=== PATIENT | male | born 1980 | race Caucasian/White ===

== ENCOUNTER 2022-05-18 13:28 | Emergency (ER) | payer OTHER ==
[2022-05-18 13:36] VITALS: BP 141/94; PULSE 86; RESP 20; TEMP 97.7
[2022-05-18] MEDS ORDERED: KETOROLAC 15 MG/ML 1 ML VIAL IM STA (15:54)
--- NOTE | 2022-05-18 15:59 | ED ---
Upper Extremity HPI - General Chief Complaint: Extremity Injury, Upper Stated Complaint: arm pain & swelling Time Seen by Provider: 05/18/22 15:50 Source: patient, RN notes reviewed Mode of arrival: ambulatory Limitations: no limitations - History of Present Illness Initial Comments: Patient is a 42-year-old male presents the emergency room with complaints of right elbow swelling tenderness and pain with range of motion limiting his range of motion that began on Monday morning when he woke up. The pain has been ongoing for the last 3 days without any improvement. He reports moving the extremity makes the pain worse. He denies any trauma or injury to his arm. He has not had any previous injuries to his arm either. He denies any other complaints or concerns including any chest pain, shortness breath, abdominal pain, nausea, vomiting, fevers or chills. He has no significant past medical history and does not take any medications on a regular basis. - Related Data Previous Rx's Medication Instructions Recorded Ibuprofen [Motrin] 800 mg PO Q8H PRN 7 Days #21 tab 05/18/22 Allergies Allergy/AdvReac Type Severity Reaction Status Date / Time No Known Allergies Allergy Verified 05/18/22 13:36 Review of Systems ROS Statement: Those systems with pertinent positive or pertinent negative responses have been documented in the HPI. ROS Other: All systems not noted in ROS Statement are negative. Past Medical History Past Medical History: No Reported History Past Surgical History: No Surgical Hx Reported Past Psychological History: No Psychological Hx Reported Smoking Status: Current every day smoker, Heavy tobacco smoker Past Alcohol Use History: Occasional Past Drug Use History: Marijuana General Exam Limitations: no limitations General appearance: alert, in no apparent distress Head exam: Present: atraumatic, normocephalic, normal inspection Eye exam: Present: normal appearance, PERRL, EOMI. Absent: scleral icterus, conjunctival injection, periorbital swelling ENT exam: Present: normal exam, mucous membranes moist Neck exam: Present: normal inspection Respiratory exam: Absent: respiratory distress, accessory muscle use Extremities exam: Absent: pedal edema, joint swelling Right Elbow exam: Present: full ROM (Limited by pain), tenderness, swelling (Medial epicondylar region). Absent: laceration, ecchymosis, deformity, crepitus, dislocation, erythema Vascular: Absent: vascular compromise Back exam: Present: normal inspection Neurological exam: Present: alert, oriented X3, CN II-XII intact Psychiatric exam: Present: normal affect, normal mood Skin exam: Present: warm, dry, intact, normal color. Absent: rash Course Vital Signs 05/18/22 13:33 Temperature 97.7 F Pulse Rate 86 Respiratory 20 Rate Blood Pressure 141/94 O2 Sat by Pulse 98 Oximetry Medical Decision Making - Medical Decision Making Patient is a 42-year-old male presenting to the emergency room with atraumatic pain, mild swelling of the medial epicondylar region with range of motion impairment likely secondary to tendinitis will check x-ray of the right elbow. Will give Toradol IM for pain. No indication for any laboratory studies at this time. Pain improved with IM Toradol. X-ray reveals extensive periarticular calcification no fracture or effusion identified. Will discharge home with ibuprofen to utilize for pain and orthopedic follow-up for possible MRI and surgical intervention for significant calcification. Case discussed [facility] Dr. Lorenzo. - Radiology Data Radiology results: report reviewed, image reviewed X-ray right elbow Limited findings there is soft tissue calcification around the elbow joint consistent with synovial chromndromatosis or tumoral calcinosis. No fracture or dislocation. Note the radial head is intact. No signs of joint effusion impression: Extensive periarticular calcification no fracture seen. Disposition Clinical Impression: Periarticular calcification, Right elbow pain Disposition: HOME SELF-CARE Condition: Stable Instructions (If sedation given, give patient instructions): Arthralgia (ED) Additional Instructions: Please take ibuprofen as prescribed as needed for pain. Do not take with other NSAIDs including aspirin. Please follow-up with orthopedist regarding further evaluation and treatment of significant calcification seen on your right elbow imaging. May utilize sling as needed to help rest joint. Gentle range of motion encouraged. Please return to the Emergency Department if symptoms worsen or any other concerns. Prescriptions: Ibuprofen [Motrin] 800 mg PO Q8H PRN 7 Days #21 tab PRN Reason: Pain Is patient prescribed a controlled substance at d/c from ED?: No Referrals: None,Stated [Primary Care Provider] - 1-2 days Linda Neal DO [Doctor of Osteopathic Medicine] - 1-2 days
--- NOTE | 2022-05-18 16:35 | XR ---
EXAMINATION TYPE: XR elbow limited RT DATE OF EXAM: 05/18/2022 COMPARISON: NONE HISTORY: Elbow pain TECHNIQUE: 3 views FINDINGS: There is soft tissue calcification around the elbow joint consistent with synovial chondrom atosis or tumoral calcinosis. No fracture nor dislocation. The radial head is intact. No sign of join t effusion. IMPRESSION: Extensive periarticular calcification. No fracture seen.
== END 2022-05-18 17:21 | disposition home or self-care (01) ==
LOC: EC 13:28
DX: M25.821 Other specified joint disorders, right elbow (principal); F17.200 Nicotine dependence, unspecified, uncomplicated
CPT/HCPCS: 73070; 99283; 96372; J1885

== ENCOUNTER → 2023-08-08 | Outpatient (CLI) | payer OTHER ==
--- NOTE | 2023-08-08 11:43 | CA ---
Stress Echo Report Terence Duggan Age: 43 Gender: M : 1980 Exam Date: 08/08/2023 10:50 Exam Location: [facility] Stress Ht (in): 65 Wt (lb): 150 Ordering Physician: Jeff Francisco DO ([email or web address]) Referring Physician: JEFF FRANCISCO,, American Sign Language Interpreter: Jorge Moore Technologist Procedure CPT: Indication: I49.3, Z01.818 pre op ICD-9 Codes: Rhythm: Patient History: Cardiac Medications: Medications in past 24 hours: Contrast: N/A Stress Results Protocol: Ronnie Total dose(mL): Exercise Duration (min:sec): 10:[address] Depression (mm): Angina Score: Nunez Score: METS: 11.9 Resting HR: 76 Resting BP: 121 / 75 Peak HR: 147 Peak BP: / 98 Max Predicted HR: 175 84 % Max Predicted HR Target HR: 149 Double Product: Stress Summary: The patient's target heart rate was achieved The hemodynamic response to exercise was normal BP Response: Reason for Termination: MAX EXERTION, DIRECTED PER BOAT GARNISHER Cardiac Symptoms: NO SYMPTOMS ECG Analysis Resting ECG: Normal sinus rhythm, normal ECG Stress ECG: No abnormal ST/T wave changes with exercise Arrhythmia: Frequent PVCs Echo Analysis Resting Echo: Normal resting echocardiogram. Peak Echo Analysis: Normal wall thickening and motion with no segmental wall motion abnormality MEASUREMENTS (Male/Female) Normal Values CONCLUSIONS 1. Good exercise tolerance with normal electrocardiographic response to exercise 2. Frequent single PVCs with rare couplets 3. Normal stress echocardiogram with no evidence of stress induced ischemia Dr. Artis Bhakta MD (Electronically Signed) Final Date: 08 August 2023 11:42
== END | disposition home or self-care (01) ==
LOC: RADNMMAIN 10:38
PROVIDERS: ATTEND Internal Medicine
DX: Z01.818 Encounter for other preprocedural examination (principal); I49.3 Ventricular premature depolarization
CPT/HCPCS: 93351

== ENCOUNTER → 2023-08-11 | Outpatient (CLI) | payer OTHER ==
--- NOTE | 2023-08-11 17:31 | CA ---
Transthoracic Echo Report Name: Terence Duggan Age: 43 Gender: M : 1980 Exam Date: 08/11/2023 15:50 Exam Location: [facility] Echo Ht (in): 68 Wt (lb): 150 Ordering Physician: Jeff Contreras DO ([email or web address]) Attending/Referring Phys: Strategic Communications Manager Tamica Wagner RDCS Procedure CPT: Indications: I49.3, Z01.818 pre op Cardiac Hx: Technical Quality: Good Contrast 1: Total Dose (mL): Contrast 2: Total Dose (mL): MEASUREMENTS (Male / Female) Normal Values 2D ECHO LV Diastolic Diameter PLAX 4.9 cm 4.2 - 5.9 / 3.9 - 5.3 cm LV Systolic Diameter PLAX 3.8 cm IVS Diastolic Thickness 1.2 cm 0.6 - 1.0 / 0.6 - 0.9 cm LVPW Diastolic Thickness 1.2 cm 0.6 - 1.0 / 0.6 - 0.9 cm LV Relative Wall Thickness 0.5 RV Internal Dim ED PLAX 3.4 cm LA Systolic Diameter LX 3.6 cm 3.0 - 4.0 / 2.7 - 3.8 cm LV Diastolic Volume MOD 4C 88.9 cm??? LV Systolic Volume MOD 4C 34.4 cm??? LV Ejection Fraction MOD 4C 61.3 % LV Cardiac Index MOD 4C 2230.3 cm???/min???m??? LV Diastolic Length 4C 9.1 cm LV Systolic Length 4C 7.5 cm LV Diastolic Volume MOD 2C 115.7 cm??? LV Systolic Volume MOD 2C 48.7 cm??? LV Ejection Fraction MOD 2C 57.9 % LV Cardiac Index MOD 2C 2739.1 cm???/min???m??? LV Diastolic Length 2C 9.1 cm LV Systolic Length 2C 7.5 cm LA Volume 56.4 cm??? 18 - 58 / 22 - 52 cm??? LA Volume Index 31.2 cm???/m??? 16 - 28 cm???/m??? M-MODE Aortic Root Diameter MM 3.6 cm MV E Point Septal Separation 0.8 cm AV Cusp Separation MM 2.5 cm DOPPLER AV Peak Velocity 140.9 cm/s AV Peak Gradient 7.9 mmHg MV Area PHT 2.4 cm??? Mitral E Point Velocity 61.0 cm/s Mitral A Point Velocity 60.5 cm/s Mitral E to A Ratio 1.0 MV Deceleration Time 318.6 ms MV E' Velocity 9.7 cm/s Mitral E to MV E' Ratio 6.3 TR Peak Velocity 193.1 cm/s TR Peak Gradient 14.9 mmHg Right Ventricular Systolic Press 19.9 mmHg FINDINGS Left Ventricle Left ventricular ejection fraction is estimated at 60-65 %. Left ventricular cavity size normal.normal left ventricular wall motion. Mildly increased left ventricular wall thickness. Normal left ventricular diastolic filling pattern. Right Ventricle Mild right ventricular dilatation. Right ventricular systolic pressure within normal limits. Right Atrium Normal right atrial size. Left Atrium Mildly increased left atrial volume. Mitral Valve Structurally normal mitral valve. No mitral stenosis, or prolapse.trace to mild mitral regurgitation. Aortic Valve Aortic valve not well visualized. Tricuspid Valve Structurally normal tricuspid valve. Trace to mild tricuspid regurgitation. Pulmonic Valve Structurally normal pulmonic valve. No pulmonic regurgitation. Pericardium No pericardial effusion. Aorta Normal size aortic root and proximal ascending aorta. CONCLUSIONS 1. Normal left ventricle size and systolic function 2. Trace to mild mitral and tricuspid regurgitation Previewed by: Dr. Artis Bhakta MD (Electronically Signed) Final Date: 11 August 2023 17:30
== END | disposition home or self-care (01) ==
LOC: RADECHMAIN 15:36
PROVIDERS: ATTEND Internal Medicine
DX: Z01.810 Encounter for preprocedural cardiovascular examination (principal); I49.3 Ventricular premature depolarization; I08.1 Rheumatic disorders of both mitral and tricuspid valves
CPT/HCPCS: 93306

== ENCOUNTER → 2023-10-06 | Outpatient (CLI) | payer OTHER ==
[2023-10-06 12:16] LABS: INR 0.9 (<1.2); Partial Thromboplastin Time 25.2 sec (22.0-30.0); Prothrombin Time 10.1 sec (10.0-12.5)
[2023-10-06 16:25] LABS: Basophils % (A) 1.1 %; Eosinophils % (A) 3.4 %; HCT 45.3 % (39.6-50.0); HGB 15.2 g/dL (13.0-17.0); Lymphocytes # (A) 2.22 X 10*3/uL (0.90-5.00); MCH 30.8 pg (27.0-32.0); MCHC 33.6 g/dL (32.0-37.0); MCV 91.7 FL (80.0-97.0); Monocytes # (A) 1.15 X 10*3/uL (0.20-1.00); NRBC Per 100 WBC 0 X 10*3/uL (0.00-0.01); Neutrophils # (A) 5.08 X 10*3/uL (1.80-7.70); Neutrophils % (A) 57.2 %; Platelet Count 246 X 10*3/uL (140-440); RBC 4.94 X 10*6/uL (4.40-5.60); RDW 13.9 % (11.5-14.5); WBC 8.88 X 10*3/uL (4.50-10.00)
[2023-10-06 16:45] LABS: Appearance,Urine Clear (Clear); Bilirubin,Urine Negative (Negative); Blood,Urine Negative (Negative); Color,Urine Yellow (Yellow); Ketones,Urine 15 (Negative); Nitrite,Urine Negative (Negative); PH, Urine 5.5; Specific Gravity,Urine 1.018 (1.001-1.030)
[2023-10-06 16:49] LABS: Blood Urea Nitrogen 9.1 mg/dL (9.0-27.0); Calcium 9.4 mg/dL (8.7-10.3); Carbon Dioxide 23.3 mmol/L (21.6-31.8); Chloride 102 mmol/L (96-109); Glucose 99 mg/dL (70-110); Potassium 4.3 mmol/L (3.5-5.5); Sodium 139 mmol/L (135-145)
== END | disposition home or self-care (01) ==
LOC: LABWHC1 11:32
PROVIDERS: ATTEND Orthopaedic Surgery Orthopaedic Surgery of the Spine
DX: Z01.812 Encounter for preprocedural laboratory examination (principal); M48.00 Spinal stenosis, site unspecified; R53.1 Weakness
CPT/HCPCS: 36415; 80048; 81003; 85025; 85610; 85730; 86850; 86900; 86901; 87070

== ENCOUNTER 2023-10-18 10:29 | Inpatient (IN) | payer OTHER ==
[~2023-10-18 10:29] MED LIST: DEXAMETHASONE SOD PHOSPHATE 4 MG/ML 1 ML VIAL IV ONE; HYDROmorphone 0.5 MG/0.5 ML SYRINGE IVP PRN; ONDANSETRON 4 MG/2 ML VIAL IVP ONE; ceFAZolin 1,000 MG in SODIUM CHLORIDE 0.9% IRRIGATIO 1,000 ML IRRIGATION PRN
[2023-10-18] MEDS: LACTATED RINGERS 1,000 ML IV SCH (11:02)
[2023-10-18] MEDS ORDERED: MIDAZOLAM 2 MG/2 ML VIAL IVP ONE (11:38)
[2023-10-18] MEDS ORDERED: DEXAMETHASONE SOD PHOSPHATE 10 MG/ML 1 ML VIAL ONE (12:16)
[2023-10-18] MEDS ORDERED: GLYCOPYRROLATE 0.2 MG/ML 2 ML VIAL ONE (12:16)
[2023-10-18] MEDS ORDERED: fentaNYL (PF) 50 MCG/ML 2 ML AMP ONE (12:16)
[2023-10-18] MEDS ORDERED: PHENYLEPHRINE-0.9% NACL SYG 1,000 MCG/10 ML SYRINGE ONE (12:16)
[2023-10-18] MEDS ORDERED: NEOSTIGMINE 1 MG/ML 10 ML VIAL ONE (12:16)
[2023-10-18] MEDS ORDERED: SUCCINYLCHOLINE CHLORIDE 200 MG/10 ML VIAL IV ONE (12:16)
[2023-10-18] MEDS ORDERED: ROCURONIUM 10 MG/ML (5 ML VIAL) IV ONE (12:16)
[2023-10-18] MEDS ORDERED: MIDAZOLAM 2 MG/2 ML VIAL ONE (12:16)
[2023-10-18] MEDS ORDERED: KETAMINE HCL IN 0.9 % NACL 50 MG/5 ML SYRINGE ONE (12:16)
[2023-10-18] MEDS ORDERED: LIDOCAINE 1% INJ 10MG/ML (20 ML MDV) ONE (12:16)
[2023-10-18] MEDS ORDERED: PROPOFOL 10 MG/ML 20 ML VIAL IV ONE (12:16)
[2023-10-18] MEDS ORDERED: GELATIN SPONGE,ABSORB (LARGE) 1 EACH SPONGE TOPICAL ONE (12:23)
[2023-10-18] MEDS ORDERED: LIDOCAINE 1%-EPI 1:100,000 50 ML VIAL SQ ONE (12:23)
[2023-10-18] MEDS ORDERED: THROMBIN (BOVINE) 5,000 UNIT VIAL TOPICAL ONE (12:23)
--- NOTE | 2023-10-18 13:35 | XR ---
EXAMINATION TYPE: XR cervical spine 1V DATE OF EXAM: 10/18/2023 COMPARISON: NONE HISTORY: Intraoperative needle placement TECHNIQUE: One intraoperative submitted FINDINGS: Endotracheal tube noted. Hypertrophic degenerative change of the cervical spine with placem ent of a metallic instrument anterior to the vertebral column. IMPRESSION: Intraoperative localization.
[2023-10-18] MEDS ORDERED: LACTATED RINGERS 1,000 ML IV ONE (14:52)
[2023-10-18] MEDS ORDERED: BENZOCAINE/MENTHOL LOZENG 1 EACH LOZENGE MUCOUS MEM PRN (15:06)
[2023-10-18] MEDS ORDERED: ONDANSETRON 4 MG/2 ML VIAL IVP PRN (15:06)
[2023-10-18] MEDS ORDERED: HYDROmorphone 1 MG/ML 1 ML SYRINGE IVP PRN (15:06)
[2023-10-18] MEDS ORDERED: HYDROmorphone 0.5 MG/0.5 ML SYRINGE IVP PRN (15:06)
[2023-10-18] MEDS ORDERED: diphenhydrAMINE 25 MG CAP PO PRN (15:08)
--- NOTE | 2023-10-18 15:16 | P.OP ---
Date of Procedure: 10/18/23 Preoperative Diagnosis: Cervical myelopathy, cervical myelomalacia, severe cervical stenosis C3 4 C4 5 C5 6, herniated nucleus pulposis C3 4 C4 5 C5 6, upper extremity weakness, upper extremity radiculopathy, difficulty ambulating, degenerative disc disease Postoperative Diagnosis: Same Anesthesia: GETA Pathology: none sent Condition: stable Disposition: PACU Description of Procedure: BRIEF OPERATIVE NOTE Preoperative Diagnosis:Cervical myelopathy, cervical myelomalacia, severe cervical stenosis C3 4 C4 5 C5 6, herniated nucleus pulposis C3 4 C4 5 C5 6, upper extremity weakness, upper extremity radiculopathy, difficulty ambulating, degenerative disc disease Postoperative Diagnosis:Cervical myelopathy, cervical myelomalacia, severe cervical stenosis C3 4 C4 5 C5 6, herniated nucleus pulposis C3 4 C4 5 C5 6, upper extremity weakness, upper extremity radiculopathy, difficulty ambulating, degenerative disc disease Procedure: Anterior cervical decompression discectomy and fusion C3 4 C4 5 C5 6 Placement of interbody graftC3 4 C4 5 C5 6 Application of anterior cervical plate C3 4 5 6 Surgeon: Dr. Jernigan Logging Superintendent: Ravinder Martini is present throughout the entire the case persistence during positioning, dissection, exposure, visualization, and all crucial elements of the case as well as closure. Anesthesia: General anesthesia Estimated blood loss:50 mL Complications: None apparent Components implanted: K2M striker Gray[place] anterior cervical plate system with 4.0 and 4.5 screws with Vikos interbody allograft bone graft and 1 mL of DBX bone putty Disposition: To recovery room in good stable condition. OPERATIVE INDICATIONS The patient has had long-standing issues in their neck and upper extremities. He isn't having significant worsening over the past several months. Patient has been noting some difficulty with his ambulation and his coordination in his upper extremities. He has been noticing changes in his fine motor activities in his arms and hands. He is worse symptoms on his right than his left. He was evaluated and found have evidence of severe cervical stenosis with cervical myelopathy and myelomalacia and was having significant changes with his neurologic function in his upper extremities. These correlated well with his neck and upper extremity symptoms. The patient has been through conservative treatment. With his worsening symptoms in his weakness and his evidence of cord change we felt that surgery would give him the best option for halting the progression of the disease and giving him the best potential for recovery. We discussed at length that he may have permanent damage in his spinal cord due to his severe stenosis. We discussed various treatment options including surgery, and the patient wishes to proceed with surgery We discussed the risk, patient's alternatives and benefits of surgery including but not limited to, risk of bleeding risk of infection, risk of need for further surgery, risk of decreased, loss of motion, muscle function, malunion nonunion, hardware failure, nerve damage, paralysis, heart attack, and . OPERATIVE SUMMARY After discussing all the risks, patient alternatives and benefits at length, the patient elected to proceed with surgical intervention, signed informed consent, and presented for their procedure. The patient was seen and examined in the preoperative holding area and the surgical site was marked. The patient was given antibiotics and brought to the operating room. The patient was positioned on the operating room table in a supine position being careful to pad any bony prominences and pressure points. The patient was sedated and intubated by anesthesia in standard fashion. Once the airway and C-spine were stabilized the patient's arms were padded and tucked at her side, with her shoulders gently taped. The head was placed in a donut pad with the neck in good neutral alignment and position. We were careful to maintain the patient's cervical spine and good neutral alignment and position throughout. The patient was prepped and draped in a normal standard fashion. An appropriate timeout and keystone protocol performed. We were able to proceed with the surgery. The local wound area was infiltrated with local anesthetic. An incision was made transversely approximately 2-1/2 cm over the appropriate levels at C4 5. Dissection was taken down subcutaneously to the level of the platysma which was split in line with its fibers. Dissection was taken with a carotid approach, with the trachea and esophagus medial and the carotid sheath laterally. We dissected down to the anterior surface of the vertebral bodies. Intraoperative x-ray was taken which showed a marker at the appropriate level of C4 5. With the appropriate level positively confirmed, we were able to proceed with discectomy at the appropriate levels. All of the operative levels were exposed appropriately. The patient had all their twitches back, and there was no evidence of recurrent laryngeal issue. The wound was copiously irrigated and suctioned dry as had been done periodically throughout the case. At the appropriate level/levels, starting first at C5 6 and then to C4 5 and C3 4 I established an annulotomy with an 11 blade scalpel. A large anterior cervical osteophytes which were removed. There is severe disc degeneration each level. A discectomy was performed with a combination of pituitary rongeurs, curettes, a high-speed bur, and Kerrison rongeurs. The posterior longitudinal ligament was taken down as were any posterior osteophytes. This gave good central and bilateral foraminal decompression. There is no evidence of any dural tear or leak. The endplates were prepared with a high-speed bur. With the endplates in good parallel position, I was able to size for the appropriate size interbody graft. The wound was irrigated and suctioned dry the graft was prepared and malleted into position. It had good alignment and position with the anterior surface flush with the anterior surface of the vertebral bodies. This was done similarly the appropriate levels first at C5 6 and at C4 5 and then at C3 4. With the grafts intact, I was able to measure and contour and appropriate sized plate. The plate was positioned at the midline over the appropriate levels at C3 4 5 and 6. Screw holes were established with a hand drill and drill guide. Screws were placed in good alignment and position with excellent bony purchase. They were seated under the locking device. The construct was checked and found to be stable. Intraoperative x-ray was taken which showed good alignment and position of the implants at the appropriate levels. Initial x-rays showed the screws at C6 slightly angled inferiorly and these were changed and exchanged for a ski screws and had excellent alignment and position at C6 x 2 There was no evidence of any dural tear or leak. Good hemostasis was maintained. The wound was copiously irrigated and suctioned dry as had been done periodically throughout the case. The platysma was closed with absorbable suture. The subcutaneous tissue was closed. The subcuticular tissue was closed with absorbable suture. The wound was cleaned and dried and dressed appropriately. A soft cervical collar was placed appropriately. The patient was woken up by anesthesia, extubated, transferred back gently to their hospital bed and brought to the recovery room in good stable condition. The patient will be admitted to the hospital for appropriate postoperative care, medical management and monitoring. We will continue to follow them closely about the postoperative course.
--- NOTE | 2023-10-18 15:40 | XR ---
EXAMINATION TYPE: XR cervical spine limited DATE OF EXAM: 10/18/2023 COMPARISON: NONE HISTORY: Hardware placement TECHNIQUE: One view submitted FINDINGS: Postsurgical change compatible with ACDF. Endotracheal tube noted. IMPRESSION: Postoperative change.
[2023-10-18] MEDS ORDERED: MEPERIDINE 50 MG/ML SYRINGE IVP ONE (15:52)
[2023-10-18] MEDS: SODIUM CHLORIDE 0.9% 1,000 ML IV SCH (16:26)
[2023-10-18] MEDS: HYDROcodone/APAP 5-325MG 1 EACH TAB PO PRN (16:54)
[2023-10-18] MEDS: CYCLOBENZAPRINE 10 MG TAB PO PRN (16:56)
[2023-10-19] MEDS: SODIUM CHLORIDE 0.9% 1,000 ML IV SCH (04:19)
[2023-10-19] MEDS: LACTATED RINGERS 1,000 ML IV SCH (07:16)
[2023-10-19 08:05] VITALS: BP 143/85; PULSE 69; TEMP 98.2
[2023-10-19] MEDS: HYDROcodone/APAP 5-325MG 1 EACH TAB PO PRN (08:41)
[2023-10-19] MEDS: CYCLOBENZAPRINE 10 MG TAB PO PRN (08:41)
[2023-10-19 09:19] VITALS: RESP 18
--- NOTE | 2023-10-19 10:45 | P.DS ---
Providers Date of admission: 10/18/23 10:29 Attending physician: Foster Jernigan Primary care physician: Jayme Shultz MD Hospital Course: The patient presented on the day of admission as per their operative note. He underwent anterior cervical decompression with discectomy and fusion C3 4 C4 5 C5 6 for his cervical myelopathy with severe cervical stenosis and myelomalacia with upper extremity weakness. Patient feels he is also already making improvement with his surgery. He is neck is somewhat sore when he swallows but is tolerating his diet well. He has been mobile in his room. Pain is well- controlled. Physical Exam The incision site is clean dry and intact. There is no erythema no drainage. There is no purulence no evidence of infection. His neck is soft and supple. There is no drainage on the dressing Abdomen soft and nontender. Chest has good excursion with deep inspiration and expiration. The patient has active and passive range of motion intact at the upper and lower extremities. There is no acute change in neurologic status. He is able to move his arms well he still has some weakness particularly to the right which is essentially unchanged Hospital Course Postoperative day 1 status post anterior cervical decompression with discectomy and fusion for his cervical myelopathy with myelomalacia and upper extremity weakness The patient has been making good progress postoperatively. He is eager to go home this morning They have completed the prophylactic antibiotics without any signs or symptoms of infection. The patient has been able to advance their diet, and is tolerating diet adequately. The pain was initially controlled with IV medications and is now controlled appropriately with oral medications. The patient has been able to increase their mobilization. He understands that he has changes within the spinal cord and may have permanent neurologic change. He is made some progress with surgery thus far and hopefully he will continue to improve over time The patient has progressed appropriately. I think they are in good stable condition for discharge today. They will be sent home with appropriate prescriptions. I answered their questions to the best of my ability in a language that they can understand and they are agreeable with the plan. They will follow up as directed. Patient Condition at Discharge: Good Plan - Discharge Summary Discharge Rx Participant: Yes New Discharge Prescriptions: New HYDROcodone/APAP 5-325MG [[place] 5-325] 1 tab PO Q4HR PRN 7 Days #42 tab PRN Reason: Pain No Action Sleep Aid(Unk) 1 tab PO HS PRN PRN Reason: Insomnia Discharge Medication List Sleep Aid(Unk) 1 tab PO HS PRN 10/11/23 [History] HYDROcodone/APAP 5-325MG [[place] 5-325] 1 tab PO Q4HR PRN 7 Days #42 tab 10/18/23 [Rx] Follow up Appointment(s)/Referral(s): Foster Jernigan, [Doctor of Osteopathic Medicine] - 2 Weeks Activity/Diet/Wound Care/Special Instructions: Keep site clean. May shower with waterproof Tegaderm intact. Do not soak in a tub. After 72 hours postoperatively, patient May remove dressing and then may shower with area uncovered. Leave glue intact and allow it to fray off on its own. May ambulate as tolerated. Avoid heavy or rigorous activity. No repetitive bending twisting or lifting. No overhead work. Discharge Disposition: HOME SELF-CARE
== END 2023-10-19 12:15 | disposition home or self-care (01) | DRG 321 ==
LOC: 2ORMAIN 10:29 → EDSTATUS 12:15 → 4SSUR 15:20
PROVIDERS: ADMIT Orthopaedic Surgery Orthopaedic Surgery of the Spine; ATTEND Orthopaedic Surgery Orthopaedic Surgery of the Spine
PROC: 0RG20A0 Fusion of 2 or more Cervical Vertebral Joints with Interbody Fusion Device, Anterior Approach, Anterior Column, Open Approach (ICD-10-PCS; principal; 2023-10-18 12:15)
PROC: 0RT30ZZ Resection of Cervical Vertebral Disc, Open Approach (ICD-10-PCS; principal; 2023-10-18 12:15)
DX: M48.02 Spinal stenosis, cervical region (principal); M50.022 Cervical disc disorder at C5-C6 level with myelopathy; M50.122 Cervical disc disorder at C5-C6 level with radiculopathy; M50.01 Cervical disc disorder with myelopathy, high cervical region; M50.11 Cervical disc disorder with radiculopathy, high cervical region; R26.2 Difficulty in walking, not elsewhere classified; Z28.21 Immunization not carried out because of patient refusal; M25.78 Osteophyte, vertebrae
CPT/HCPCS: 72020; 72040